=== PATIENT | female | born 1980 | race Caucasian/White ===

== ENCOUNTER → 2017-05-01 | Day surgery (SDC) | payer BC ==
[~2017-05-01] VITALS: Ht 160 cm; Wt 88.5 kg
[~2017-05-01] MED LIST: BUPIVACAINE HCL 0.25% 30 ML VIAL As Ordered ONE; HYDR-3713 PO; KETOROLAC 60 MG/2 ML VIAL (J1885) As Ordered ONE; LIDOCAINE 1% SDV INJ 30 ML VIAL As Ordered ONE; LIDOCAINE 2% INJ 100 MG/5 ML SDV (FOR ANES.) As Ordered ONE; LR 1,000 ML IV SCH; MIDAZOLAM INJ 2 MG/2 ML VIAL (J2250) As Ordered ONE; NORCO, ANEXSIA 5/325MG TABLET (HYDROcodone/ACETAMINOPHEN) PO PRN; ONDANSETRON 4 MG TAB (S0181) PO PRN; ONDANSETRON 4MG/2ML VIAL (J2405) As Ordered ONE; ONDANSETRON 4MG/2ML VIAL (J2405) IV PRN; PERCOCET 5MG/325MG TAB PO PRN; PROPOFOL 200 MG/20 ML VIAL As Ordered ONE; [UNRECOGNIZED DRUG - REMARK]; ceFAZolin SOD 1 GM in D5W MINI-BAG PLUS 50 ML IV ONE; dexameTHASONE 4 MG/ML 1ML VIAL (J1100) As Ordered ONE; fentaNYL 100 MCG/2 ML INJECTION (J3010) As Ordered ONE
[2017-05-01] MEDS: fentaNYL 100 MCG/2 ML INJECTION (J3010) IV PRN ×4 (15:20→15:36)
[2017-05-01 16:30] VITALS: BP 118/59
--- NOTE | 2017-05-06 09:59 | ROOPDOC ---
[facility] Report Of Operation Report of Operation DATE OF PROCEDURE: 05/01/17 PREPROCEDURE DIAGNOSES: Right breast lump. POSTPROCEDURE DIAGNOSES: Right breast lump, fibrofatty lump. PROCEDURE: Excision biopsy right breast lump. SURGEON: Henok Cruz MD [employer] INSPECTOR: ANESTHESIA: Gen. anesthesia. ESTIMATED BLOOD LOSS: Approximately 10 mL. COMPLICATIONS: None. FINDINGS: No definite mass found, nodular fibrofatty breast tissue removed PROCEDURE NOTE: 28-year-old female with strong history of breast cancer in the family whether persistent lump on the right side of her breast, negative for suggestions of malignancy on imaging studies. She is brought today for excisional biopsy of said lump. DESCRIPTION OF PROCEDURE: Patient was seen in the preop area, the area of the lump marked. She was brought to the OR, laid supine on the table with her arms extended. She received a gram of Ancef IV preoperatively for wound prophylaxis. General anesthesia given without any complications. Her neck and chest, breast, axilla and arms were prepped and draped in usual sterile fashion. Surgical timeout verifying her, the procedure, laterality was performed prior to start for surgery. She has a small noticeable, cut and irregular lump on her breast tissue over at the right medial side of her breast. Appears nontender and movable, mildly tender to palpation. No overlying skin changes. This was palpated and controlled in between my 2 fingers. Local anesthesia infiltrated on the skin above the area. A short 3-4 cm transverse incision created and deepened through subcutaneous tissue. The lump was palpated and identified and brought to the skin incision with Allis forceps. A circumferential incision the lung from rest of the breast and subcutaneous tissue done using Bovie cautery. Several other areas that are lumpy were removed. At the end of the procedure palpated around the area and could no longer feel any mass or lumpiness. After checking for adequate hemostasis, this incision was closed in layers with 3-0 Vicryl closed the subcutaneous and dermal areas and 4-0 Monocryl in subcutaneous ago fashion close the skin. Dermabond was used for dressing. Patient was appropriately awakened, extubated and brought to recovery room stable. HENOK CRUZ MD May 06, 2017 09:25
== END ==
LOC: M SDC 11:38
PROVIDERS: ATTEND Surgery
DX: N63 Unspecified lump in breast (principal); Z80.3 Family history of malignant neoplasm of breast; F41.9 Anxiety disorder, unspecified; F32.9 Major depressive disorder, single episode, unspecified; Z88.8 Allergy status to other drugs, medicaments and biological substances; Z91.013 Allergy to seafood; Z92.3 Personal history of irradiation
CPT/HCPCS: 19120; 88305; J0690; J1100; J1885; J2250; J2405; J3010

== ENCOUNTER → 2019-11-22 | Outpatient (CLI) | payer BC ==
[~2019-11-22] MED LIST changes: -BUPIVACAINE HCL 0.25% 30 ML VIAL As Ordered ONE; -KETOROLAC 60 MG/2 ML VIAL (J1885) As Ordered ONE; -LIDOCAINE 1% SDV INJ 30 ML VIAL As Ordered ONE; -LIDOCAINE 2% INJ 100 MG/5 ML SDV (FOR ANES.) As Ordered ONE; -LR 1,000 ML IV SCH; -MIDAZOLAM INJ 2 MG/2 ML VIAL (J2250) As Ordered ONE; -NORCO, ANEXSIA 5/325MG TABLET (HYDROcodone/ACETAMINOPHEN) PO PRN; -ONDANSETRON 4 MG TAB (S0181) PO PRN; -ONDANSETRON 4MG/2ML VIAL (J2405) As Ordered ONE; -ONDANSETRON 4MG/2ML VIAL (J2405) IV PRN; -PERCOCET 5MG/325MG TAB PO PRN; -PROPOFOL 200 MG/20 ML VIAL As Ordered ONE; -ceFAZolin SOD 1 GM in D5W MINI-BAG PLUS 50 ML IV ONE; -dexameTHASONE 4 MG/ML 1ML VIAL (J1100) As Ordered ONE; -fentaNYL 100 MCG/2 ML INJECTION (J3010) As Ordered ONE
== END ==
LOC: M LABSMTC 10:56
PROVIDERS: ATTEND Family Medicine
DX: Z11.59 Encounter for screening for other viral diseases (principal); Z20.828 Contact with and (suspected) exposure to other viral communicable diseases

== ENCOUNTER → 2024-08-12 | Outpatient (CLI) | payer BC | LOC: M RAD 14:16 | PROVIDERS: ATTEND Otolaryngology | DX: R07.0 Pain in throat (principal) ==